=== PATIENT | female | born 1955 | race Caucasian/White ===

== ENCOUNTER 2021-11-08 07:10 | Day surgery (SDC) | payer MEDICARE, OTHER ==
[~2021-11-08 07:10] MED LIST: Lactated Ringers 1,000 ML IV SCH; Sodium Chloride 0.9% 10 ML Syringe FLUSH PRN
[2021-11-08] MEDS ORDERED: Propofol 200 MG/20 ML SDV IV ONE (07:11)
[2021-11-08] MEDS ORDERED: Lidocaine 1% PF 2 ML SDV INJECT ONE (07:11)
== END 2021-11-08 08:45 | disposition home or self-care (01) ==
LOC: FB.SDS 07:10
PROVIDERS: ATTEND Surgery
DX: Z12.11 Encounter for screening for malignant neoplasm of colon (principal); D12.2 Benign neoplasm of ascending colon; D12.0 Benign neoplasm of cecum; I10 Essential (primary) hypertension; Z88.5 Allergy status to narcotic agent; Z79.899 Other long term (current) drug therapy; Z87.891 Personal history of nicotine dependence
CPT/HCPCS: 00812-QZ; 88305; J2704; J7120